=== PATIENT | male | born 1995 | race Caucasian/White ===

== ENCOUNTER → 2021-06-05 | Outpatient (CLI) | payer OTHER ==
[2021-06-05 09:10] LABS: CHOLESTEROL 192 mg/dL (<200); TRIGLYCERIDES 105 mg/dl (<150)
[2021-06-05 09:13] LABS: LDL CHOLESTEROL 126 mg/dL (9-159)
== END | disposition home or self-care (01) ==
LOC: LAB 08:27 → CARD 08:30
PROVIDERS: ATTEND Family Medicine
DX: Z02.1 Encounter for pre-employment examination (principal); R79.89 Other specified abnormal findings of blood chemistry; E78.5 Hyperlipidemia, unspecified

== ENCOUNTER 2021-07-19 02:37 | Emergency (ER) | payer OTHER ==
[~2021-07-19] VITALS: Ht 172.7 cm; Wt 78.9 kg
[2021-07-19 03:14] LABS: URINE AMPHETAMINES < 1000 (1000ng/ml); URINE BARBITURATES < 200 (200ng/ml); URINE BENZODIAZEPINES < 200 (200ng/ml); URINE CANNABINOIDS (THC) < 50 (50ng/ml); URINE COCAINE < 300 (300ng/ml); URINE METHADONE < 300 (300ng/ml); URINE OPIATES < 300 (300ng/ml)
[2021-07-19 03:16] LABS: URINE PHENCYCLIDINE < 25 (25ng/ml)
== END 2021-07-19 05:51 | disposition home or self-care (01) ==
LOC: ED 02:37
PROVIDERS: Emergency Medicine
DX: Z13.89 Encounter for screening for other disorder (principal)